=== PATIENT | male | born 1995 | race Caucasian/White ===

== ENCOUNTER 2019-08-19 09:29 | Emergency (ER) | payer MEDICAID ==
[2019-08-19 09:36] VITALS: TEMP 97.6
[2019-08-19] MEDS ORDERED: ONDANSETRON 4 MG/2 ML VIAL IVP STA (09:52)
[2019-08-19] MEDS ORDERED: KETOROLAC 30 MG/ML 1 ML VIAL IVP STA (09:52)
[2019-08-19] MEDS ORDERED: SODIUM CHLORIDE 0.9% 1,000 ML IV STA (09:53)
--- NOTE | 2019-08-19 10:10 | ED ---
General Adult HPI - General Chief complaint: Abdominal Pain Stated complaint: Possible kidney stone Time Seen by Provider: 08/19/19 09:36 Source: patient, RN notes reviewed Mode of arrival: ambulatory Limitations: no limitations - History of Present Illness Initial comments: 24-year-old male presents to the emergency department for a chief complaint of right flank pain. Patient states this started about 3 hours prior to arrival. Patient states it radiates from the right flank to the right abdomen. Patient is visibly distressed from the pain and cannot get comfortable. Patient denies any fevers or chills. Does admit to mild nausea but denies vomiting. Patient does have a family history of kidney stones or does never had a kidney stone himself. Patient has no other complaints at this time including shortness of breath, chest pain, vomiting, headache, or visual changes. - Related Data Previous Rx's Medication Instructions Recorded HYDROcodone/APAP 5-325MG [[place] 1 tab PO Q6HR PRN #10 tab 08/19/19 5-325] Ibuprofen [Motrin] 600 mg PO Q8HR PRN #20 tab 08/19/19 Ondansetron [Zofran ODT] 4 mg PO Q8HR PRN #15 tab 08/19/19 Tamsulosin [Flomax] 0.4 mg PO DAILY #10 cap 08/19/19 Allergies Allergy/AdvReac Type Severity Reaction Status Date / Time No Known Allergies Allergy Verified 08/19/19 09:36 Review of Systems ROS Statement: Those systems with pertinent positive or pertinent negative responses have been documented in the HPI. ROS Other: All systems not noted in ROS Statement are negative. Past Medical History Past Medical History: No Reported History History of Any Multi-Drug Resistant Organisms: None Reported Past Surgical History: No Surgical Hx Reported Past Psychological History: No Psychological Hx Reported Smoking Status: Current every day smoker Past Alcohol Use History: None Reported Past Drug Use History: None Reported General Exam Limitations: no limitations General appearance: alert, other (In mild distress secondary to pain) Head exam: Present: atraumatic, normocephalic, normal inspection Eye exam: Present: normal appearance, PERRL, EOMI. Absent: scleral icterus, conjunctival injection, periorbital swelling ENT exam: Present: normal exam, mucous membranes moist Neck exam: Present: normal inspection, full ROM. Absent: tenderness, meningismus, lymphadenopathy Respiratory exam: Present: normal lung sounds bilaterally. Absent: respiratory distress, wheezes, rales, rhonchi, stridor Cardiovascular Exam: Present: regular rate, normal rhythm, normal heart sounds. Absent: systolic murmur, diastolic murmur, rubs, gallop, clicks GI/Abdominal exam: Present: soft, normal bowel sounds. Absent: distended, tenderness (No abdominal tenderness), guarding, rebound, rigid Back exam: Present: CVA tenderness (R). Absent: CVA tenderness (L) Neurological exam: Present: alert Psychiatric exam: Present: normal affect Course Vital Signs 08/19/19 08/19/19 08/19/19 09:32 09:36 10:36 Temperature 97.6 F Pulse Rate 79 80 Respiratory 22 20 20 Rate Blood Pressure 143/93 120/75 O2 Sat by Pulse 100 98 Oximetry 08/19/19 08/19/19 11:12 11:41 Temperature 97.6 F Pulse Rate 76 76 Respiratory 18 18 Rate Blood Pressure 120/75 120/75 O2 Sat by Pulse 99 99 Oximetry - Reevaluation(s) Reevaluation #1: 08/19/19 10:39 Patient reevaluated, feeling better, walked him to the bathroom for urine sample. Medical Decision Making - Medical Decision Making Vitals are stable. CBC CMP unremarkable. CT abdomen and pelvis without contrast shows a 3 mm distal right ureter calculus causing mild right-sided hydronephrosis. X-ray KUB was obtained for urology. Patient was reevaluated and did have significant improvement in pain. No longer distress. However he was still having about 5 out of 10 pain so was given additional pain medication. Patient reevaluated after Dilaudid and is feeling significantly improved. A urinalysis does not show any evidence of infection. Patient was discharged home in stable condition with [place], Motrin, Zofran, and Flomax. He will follow up with urology. He will return for any worsening symptoms which were discussed thoroughly with him. - Lab Data Result diagrams: 08/19/19 09:45 08/19/19 09:45 Lab Results 08/19/19 08/19/19 08/19/19 Range/Units 09:45 09:45 10:55 WBC 7.4 (3.8-10.6) k/uL RBC 5.72 (4.30-5.90) m/uL Hgb 17.1 (13.0-17.5) gm/dL Hct 49.8 (39.0-53.0) % MCV 87.2 (80.0-100.0) fL MCH 29.8 (25.0-35.0) pg MCHC 34.2 (31.0-37.0) g/dL RDW 13.4 (11.5-15.5) % Plt Count 264 (150-450) k/uL Neutrophils % 41 % Lymphocytes % 46 % Monocytes % 6 % Eosinophils % 2 % Basophils % 1 % Neutrophils # 3.1 (1.3-7.7) k/uL Lymphocytes # 3.4 (1.0-4.8) k/uL Monocytes # 0.5 (0-1.0) k/uL Eosinophils # 0.1 (0-0.7) k/uL Basophils # 0.1 (0-0.2) k/uL Sodium 138 (137-145) mmol/L Potassium 3.8 (3.5-5.1) mmol/L Chloride 103 (98-107) mmol/L Carbon Dioxide 21 L (22-30) mmol/L Anion Gap 14 mmol/L BUN 14 (9-20) mg/dL Creatinine 0.96 (0.66-1.25) mg/dL Est GFR (CKD-EPI)AfAm >90 (>60 ml/min/1.73 sqM) Est GFR (CKD-EPI)NonAf >90 (>60 ml/min/1.73 sqM) Glucose 115 H (74-99) mg/dL Calcium 9.4 (8.4-10.2) mg/dL Total Bilirubin 0.3 (0.2-1.3) mg/dL AST 36 (17-59) U/L ALT 38 (4-49) U/L Alkaline Phosphatase 56 (38-126) U/L Total Protein 7.4 (6.3-8.2) g/dL Albumin 4.4 (3.5-5.0) g/dL Amylase 73 (30-110) U/L Lipase 61 (23-300) U/L Urine Color Light Yellow Urine Appearance Clear (Clear) Urine pH 6.5 (5.0-8.0) Ur Specific [place] 1.018 (1.001-1.035) Urine Protein Negative (Negative) Urine Glucose (UA) Negative (Negative) Urine Ketones Negative (Negative) Urine Blood Negative (Negative) Urine Nitrite Negative (Negative) Urine Bilirubin Negative (Negative) Urine Urobilinogen <2.0 (<2.0) mg/dL Ur Leukocyte Esterase Negative (Negative) Disposition Clinical Impression: Ureterolithiasis Disposition: HOME SELF-CARE Condition: Good Instructions (If sedation given, give patient instructions): Kidney Stones (ED) Additional Instructions: Please take medications as directed. Take Motrin for pain and if pain is severe take [place]. Do not drive or operate machinery while taking [place]. Call urology in the next day or 2 to make an appointment. If you have worsening symptoms, worsening pain, or are not able to keep down fluids return to the emergency department. Prescriptions: Tamsulosin [Flomax] 0.4 mg PO DAILY #10 cap Ibuprofen [Motrin] 600 mg PO Q8HR PRN #20 tab PRN Reason: Pain HYDROcodone/APAP 5-325MG [[place] 5-325] 1 tab PO Q6HR PRN #10 tab PRN Reason: Pain Ondansetron [Zofran ODT] 4 mg PO Q8HR PRN #15 tab PRN Reason: Nausea Is patient prescribed a controlled substance at d/c from ED?: No Referrals: Fredy Hardy DO [Primary Care Provider] - 1-2 days Issac Cisneros MD [STAFF PHYSICIAN] - 1-2 days Time of Disposition: 11:27
[2019-08-19 10:18] LABS: Basophils # (A) 0.1 k/uL (0-0.2); Basophils % (A) 1 %; Eosinophils # (A) 0.1 k/uL (0-0.7); Eosinophils % (A) 2 %; HCT 49.8 % (39.0-53.0); HGB 17.1 gm/dL (13.0-17.5); Lymphocytes # (A) 3.4 k/uL (1.0-4.8); Lymphocytes % (A) 46 %; MCH 29.8 pg (25.0-35.0); MCHC 34.2 g/dL (31.0-37.0); MCV 87.2 fL (80.0-100.0); Mean Platelet Volume 8.7; Monocytes # (A) 0.5 k/uL (0-1.0); Monocytes % (A) 6 %; Neutrophils # (A) 3.1 k/uL (1.3-7.7); Neutrophils % (A) 41 %; Platelet Count 264 k/uL (150-450); RBC 5.72 m/uL (4.30-5.90); RDW 13.4 % (11.5-15.5); WBC 7.4 k/uL (3.8-10.6)
--- NOTE | 2019-08-19 10:28 | XR ---
EXAMINATION TYPE: XR KUB DATE OF EXAM: 08/19/2019 10:19 AM CLINICAL HISTORY: Right posterior flank pain with nausea and vomiting TECHNIQUE: Two Upright KUB images of the abdomen are obtained. COMPARISON: None. FINDINGS: Scattered gas is seen in non-distended small bowel loops. Gas and fecal material is seen in non-distended colon. There is no visceromegaly, pneumoperitoneum, or abnormal calcification apprecia tracy. The lung bases are clear and the osseous structures are intact. IMPRESSION: No definitive nephrolithiasis.
[2019-08-19 10:29] LABS: ALT 38 U/L (4-49); AST 36 U/L (17-59); African American GFR (CKD) >90 (>60 ml/min/1.73 sqM); Albumin 4.4 g/dL (3.5-5.0); Alkaline Phosphatase 56 U/L (38-126); Amylase 73 U/L (30-110); Anion Gap 14 mmol/L; Blood Urea Nitrogen 14 mg/dL (9-20); Calcium 9.4 mg/dL (8.4-10.2); Carbon Dioxide 21 mmol/L (22-30); Chloride 103 mmol/L (98-107); Glucose 115 mg/dL (74-99); Non-African American GFR(CKD) >90 (>60 ml/min/1.73 sqM); Potassium 3.8 mmol/L (3.5-5.1); Sodium 138 mmol/L (137-145); Total Bilirubin 0.3 mg/dL (0.2-1.3); Total Protein 7.4 g/dL (6.3-8.2)
[2019-08-19] MEDS ORDERED: HYDROmorphone 0.5 MG/0.5 ML SYRINGE IVP STA (10:35)
--- NOTE | 2019-08-19 10:35 | CT ---
EXAMINATION TYPE: CT abdomen pelvis wo con DATE OF EXAM: 08/19/2019 HISTORY: Abdominal pain. Right flank pain with nausea and vomiting. CT DLP: 557.4 mGycm. Automated Exposure Control for Dose Reduction was Utilized. TECHNIQUE: CT scan of the abdomen and pelvis is performed without oral or IV contrast. COMPARISON: Same day abdominal x-ray. FINDINGS: Within the limitations of a non-contrast study, the following observations are made. LUNG BASES: No significant abnormality is appreciated. LIVER/GB: No significant abnormality is appreciated. PANCREAS: No significant abnormality is seen. SPLEEN: No significant abnormality is seen. ADRENALS: No significant abnormality is seen. KIDNEYS: No left-sided renal calculus or hydronephrosis. No right-sided renal calculi. Mild right-mello ed hydronephrosis due to a 3 mm calculus in distal right ureter axial image 77 and coronal image 55. No additional intraluminal calculus and bladder. BOWEL: No suspicious small or large bowel dilatation. Small bowel feces sign in the upper abdomen con sistent with delayed passage of ingested food product 2 colonic level. GENITAL ORGANS: No gross abnormality seen. LYMPH NODES: No greater than 1cm abdominal or pelvic lymph nodes are appreciated. OSSEOUS STRUCTURES: No significant abnormality is seen. OTHER: No significant additional abnormality is seen. IMPRESSION: There is 3 mm distal right ureter calculus causing mild right-sided hydronephrosis.
[2019-08-19 11:16] VITALS: BP 120/75; PULSE 76; RESP 18
[2019-08-19 11:19] LABS: Appearance,Urine Clear (Clear); Bilirubin,Urine Negative (Negative); Blood,Urine Negative (Negative); Color,Urine Light Yellow; Glucose,Urine (UA) Negative (Negative); Ketones,Urine Negative (Negative); Leukocyte Esterase,Urine Negative (Negative); Nitrite,Urine Negative (Negative); PH, Urine 6.5 (5.0-8.0); Protein,Urine Negative (Negative); Specific Gravity,Urine 1.018 (1.001-1.035); Urobilinogen,Urine <2.0 mg/dL (<2.0)
== END 2019-08-19 11:45 | disposition home or self-care (01) ==
LOC: EC 09:29
DX: N13.2 Hydronephrosis with renal and ureteral calculous obstruction (principal); F17.200 Nicotine dependence, unspecified, uncomplicated
CPT/HCPCS: 36415; 80053; 82150; 83690; 85025; 81003; 74018; 74176; 99284; 96374; 96375 ×2; 96361; J2405; J1885; J1170